=== PATIENT | female | born 1955 | race Caucasian/White ===

== ENCOUNTER 2025-04-19 10:27 | Outpatient (OUT) | payer MEDICARE, SELFPAY ==
--- OUTSIDE RECORDS SUMMARY | 2025-04-19 10:34 | XMS_ITS | Encounter Summary ---
Author Organization [facility] Address [address] [place] [address] Care Team Providers Care Instrumentation Tech Name Role Phone Sumit Ramires MD Primary Care Provider +[phone] Tyler Bailon DO Unavailable Encounter Details Date Type Department Care Team (Late st Contact Info) Description 04/14/2025 Bamboo flowsheet [facility] Family [facility] 112 [facility] 100 [place] [address] Sumit Ramires MD 112 [facility] 100 [place] [address] Social History Tobacco Use Types Packs/Day Years Used Date Smoking Tobacco: Never Smokeless Tobacco: Never Alcohol Use Standard Drinks/Week Comments Not Currently 0 (1 standard drink = 0.6 oz pure alcohol) Caffeine intake : 1-2 cups per day Social Connection and Isolat ion Panel [NHANES] Answer Date Recorded In a typical week, how many times do you talk on the phone with family, friends, or neighbors? Twice a week 11/18/2023 How often do you get togethe r with friends or relatives? Once a week 11/18/2023 How often do you attend chur ch or mu-ism services? More than 4 times per year 11/18/2023 Do you belong to any clubs o r organizations such as spiritism groups, unions, fraternal or athletic groups, or school groups? Yes 11/18/2023 How often do you attend meet ings of the clubs or organizations you belong to? 1 to 4 times per year 11/18/2023 Are you , , di vorced, , never , or living with a partner? 11/18/2023 AUDIT-C Answer Date Recorded Q1: How often do you have a drink containing alcohol? Never 11/18/2023 Q2: How many drinks containi ng alcohol do you have on a typical day when you are drinking? Patient does not drink Q3: How often do you have si x or more drinks on one occasion? Never 11/18/2023 Overall Financial Resource Strain (CARDIA) Answe r Date Recorded How hard is it for you to pa y for the very basics like food, housing, medical care, and heating? Not hard at all 11/18/2023 PHQ-2 Answer Date Recorded Patient Health Questionnaire-2 Score 0 12/30/2024 [facility] - Occupational Stress Questionnaire Answer Date Recorded Do you feel stress - tense, restless, nervous, or anxious, or unable to sleep at night because your mind is troubled all the time - these days? Not at all 11/18/2023 Exercise Vital Sign Answer Date Recorde d On average, how many days pe r week do you engage in moderate to strenuous exercise (like a brisk walk)? 2 days 11/18/2023 On average, how many minutes do you engage in exercise at this level? 30 min 11/18/2023 Hunger Vital Sign Answer Date Recorded Within the past 12 months, y ou worried that your food would run out before you got the money to buy more. Never true 11/18/19 24 Within the past 12 months, t he food you bought just didn't last and you didn't have money to get more. Never true 11/18/2023 PRAPARE - Transportation Answer Date Re corded In the past 12 months, has l ack of transportation kept you from medical appointments or from getting medications? No 10/31 In the past 12 months, has l ack of transportation kept you from meetings, work, or from getting things needed for daily living? No 11/18/2023 Housing Stability Vital Sign Answer Bandar e Recorded In the last 12 months, was t here a time when you were not able to pay the mortgage or rent on time? No 11/18/2023 Number of Places Lived in the Last Year Not on f ile 11/18/2023 In the last 12 months, was t here a time when you did not have a steady place to sleep or slept in a long term (including now)? No 11/18/2023 Education Answer Date Recorded What is the highest level of school you have completed or the highest degree you have received? Some college, no degree 05/27/2023 Comments No Sex and Gender Information Value Date Recorded Sex Assigned at Not on file Legal Sex Female 6:50 PM EDT Gender Identity Not on file Sexual Orientation Not on file Occupation Industry Job Start Date Job End Date Retired Not on file Not on file Not on file documented as of this encounter Plan of Treatment Upcoming Encounters Date Type Department Care Team (Late st Contact Info) Description 05/18/2025 10:30 AM EDT Office Visit [facility] [address] [address] [place] [address] Sumit Ramires MD [address] [place] [address] documented as of this encounter Visit Diagnoses Not on filedocumented in this encounter Additional Health Concerns Assessment Noted Time PHQ-9 Depression Total Score: 0 12/31/19 25 10:00 AM EDT documented as of this encounter Care Teams Instrumentation Tech Relationship Specialty Start Date End Date Sumit Ramires MD [address] [place] [address] PCP - General Family Medicine 01/08/23 Tyler Bailon DO [address] [place] [address] Referring Physician Orthopaedic Surgery 01/11/25 documented as of this encounter
--- OUTSIDE RECORDS SUMMARY | 2025-04-19 10:34 | XMS_ITS | Encounter Summary ---
Author Organization [facility] Address [address] [place] [address] Care Team Providers Care Casing Operator Name Role Phone Sumit Ramires MD Primary Care Provider + [phone] Tyler Bailon DO Unavailable [phone] Reason for Visit * Reason Comments Med Refill Encounter Details Date Type Department Care Team (Late st Contact Info) Description 11/14/2024 Refill [facility] Family Medicine [address] [place] [address] Sumit Ramires MD 112 [facility] [address] [place] [address] (Fax) Essential hypertension Social History Tobacco Use Types Packs/Day Years [...] often do you attend chur ch or mormon services? More than 4 times per year 11/18/2023 Do you belong to any clubs o r organizations such as mosque groups, unions, fraternal or athletic groups, or [...] Date Recorded Patient Health Questionnaire-2 Score 0 11/19/2023 [facility] - Occupational [...] place to sleep or slept in a assisted (including now)? No 11/18/2023 Education Answer Date [...] 05/18/2025 10:30 AM EDT Office Visit [facility] [address] [address] Sumit Ramires MD [address] [address] documented as of this encounter Visit Diagnoses Diagnosis Essential hypertension Unspecified essential hypertension documented in this encounter Care Teams Casing Operator Relationship Specialty Start Date End Date Sumit Ramires MD [address] [address] PCP - General Family Medicine 01/08/23 Tyler Bailon DO [address] [place] [address] Referring Physician Orthopaedic Surgery 01/11/25 documented as of this encounter
--- OUTSIDE RECORDS SUMMARY | 2025-04-19 10:34 | XMS_ITS | Clinical Summary ---
Author Organization [facility] Address [address] [place] [address] Care Team Providers Care Circulation Supervisor Name Role Phone Sumit Ramires MD Primary Care Provider + [phone] Tyler Bailon DO Unavailable [phone] Allergies Active Allergy Reactions Criticality Noted Date Comments Sulfamethoxazole-Trimethop rim Low 05/01/2023 Other Reaction(s): nausea and vomiting Medications vitamin k 100 MCG tablet Take 100 mcg by mouth 1 (one) time each day at the same time. Active cholecalciferol (Vitamin D-3) 250 MCG (37249 UT) tablet Take 10,000 Units by mouth in the morning. summer. Active cholecalciferol (Vitamin D-3) 50 MCG (2000 UT) tablet Take 6 tablets by mouth in the morning. [id number] total winter dose. Active calcium citrate (Calcitrate) 950 (200 Ca) MG tablet Take 475 mg by mouth in the morning and 475 mg in the evening and 475 mg before bedtime. Active Multiple Vitamins-Minerals (OCUVITE ADULT 50+ PO) Take 1 tablet by mouth Daily Active MULTI THERA Take 1 tablet by mouth Daily Active Misc Natural Products (OSTEO BI-FLEX JOINT SHIELD PO) Take 1 tablet by mouth Daily Active STRONTIUM CITRATE Take 1 tablet by mouth Daily Active losartan (Cozaar) 50 MG tabletIndications :Essential hypertension Take 1 tablet (50 mg) by mouth Daily 90 tablet 1 5 05/17/20 25 Active estradiol (Climara) 0.05 MG/24HRIndication s:Hormone replacement therapy Place 1 patch on the skin 1 (one) time per week 12 patch 3 5 11/19/19 26 Active Active Problems Problem Noted Date Diagnosed Date Cardiovascular event risk 01/11/2025 Hormone replacement therapy 11/10/2024 Age-related osteoporosis wit hout current pathological fracture 05/01/2023 Atrophic vaginitis 05/01/2023 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 05/01/2023 Essential hypertension 05/01/2023 Gastroesophageal reflux disease without esophagi tis 05/01/2023 History of hysterectomy 05/01/2023 Non morbid obesity due to excess calories 2022 Osteopenia of lumbar spine 05/01/2023 Osteopenia of right hip 05/01/2023 Osteoporosis of forearm 05/01/2023 Presence of left artificial hip joint 05/01/2023 Primary osteoarthritis of both knees 05/01/2023 Resolved Problems Problem Noted Date Diagnosed Date Resolved Date Gastroesophageal reflux dise ase with esophagitis 05/01/2023 11/19/2023 Encounters Date Type Department Care Team Description 04/14/2025 9:30 AM EDT Office Visit [facility] [address] [place] [phone] Sumit Ramires MD Gastroesophageal reflux disease without esophagitis (Primary Dx); Heart palpitations; Other chest pain; Essential hypertension ; Cardiovascular event risk; Non morbid obesity due to excess calories 04/14/2025 Bamboo flowsheet [facility] [address] [place] [address] Sumit Ramires MD 04/14/2025 Travel from Last 3 Months Immunizations Immunization Administration Dates Next Due Influenza, High Dose Seasona l, Preservative Free 06/16/2024,07/01/2019 Influenza, High-dose Seasona l, Quadrivalent, Preservative Free 06/12/2021 Influenza, Seasonal, Quadriv alent, Adjuvanted 06/17/2023,06/20/2022,06/07/2020 Influenza, injectable, quadr ivalent, preservative free 06/06/2022,06/04/2018 Moderna SARS-CoV-2 50mcg/0.5mL Booster 2 Pneumococcal Conjugate PCV 13 07/16/2019 Pneumococcal Polysaccharide PPSV23 07/17/2020 Family History Medical History Relation Name Comments No Known Problems Brother No Known Problems Daughter Angina Father Dad Heart disease Father Dad Alzheimer's disease Mother Kemi Cervical cancer Mother Kemi Diabetes Mother Kemi Heart disease Mother Kemi No Known Problems Sister No Known Problems Son Relation Name Status Comments Brother 1 brother Daughter Alive 1 daughter Father Dad Mother Kemi Other Alive spouse Sister 1 sister Son Alive 1 son Social History Tobacco Use Types Packs/Day Years Used Date Smoking Tobacco: Never Smokeless Tobacco: Never Tobacco Cessation:Counseling Given: Yes Alcohol Use Standard Drinks/Week Comments Not Currently [...] 11/18/2023 How often do you attend chur or evangelical services? More than 4 times per year 11/18/2023 Do you belong to any clubs o r organizations such as amish groups, unions, fraternal or athletic groups, or [...] Recorded Patient Health Questionnaire-2 Score 0 12/30/2024 [facility] - Occupational Stress [...] place to sleep or slept in a prison (including now)? No 11/18/2023 Education Answer Date [...] file Not on file Not on file Last Filed Vital Signs Vital Sign Reading Time Taken Comments Blood Pressure 120/72 04/14/2025 9:30 AM EDT Pulse 80 04/14/2025 9:30 AM EDT Temperature 36.8 C (98.3 F) 11/18/2023 10:38 AM EDT Respiratory Rate - - Oxygen Saturation 95% 04/14/2025 9:30 AM EDT Inhaled Oxygen Concentration - - Weight 70.8 kg (156 lb) 04/14/2025 9:30 AM EDT Height 152.4 cm (5') 04/14/2025 9:30 AM EDT Body Mass Index 30.47 04/14/2025 9:30 AM EDT Plan of Treatment Upcoming Encounters Date Type Department Care Team (Late st Contact Info) Description 05/18/2025 10:30 AM EDT Office Visit [facility] 112 [facility] 100 [place] [address] Sumit Ramires MD 112 [facility] 100 [place] [address] Health Maintenance Due Date Last Done Comments CT Colonography 1953 FIT-DNA 1953 FIT 1955 FOBT 1955 Sigmoidoscopy 1955 Mammogram 05/03/2024 05/03/2023, 04/03, 03/26/2019, Additional history exists Influenza Vaccine (#1) 2025 , 06/17/2023, 06/20/2022, Additional history exists Medicare Annual Wellness (AWV) 12/30/2025 12/30/2024 Colonoscopy 03/07/2028 03/07/2018 Colorectal Cancer Screening 03/07/2028 Pneumococcal Vaccine: 65+ Years Completed 0, 07/16/2019 Procedures Procedure Name Priority Date/Time Associated Diagnosis Comments *DIGITATION SCREEN MAMMOGRAM Routine 05/03/2023 8:08 AM EDT COLONOSCOPY Routine 03/07/2018 12:00 PM EDT Overweight Encounter for screening for osteoporosis Other specified anxiety disorders Other specified counseling Gastro-esophageal reflux disease without esophagitis Encounter for screening for malignant neoplasm of colon Encounter for general adult medical examination without abnormal findings Encounter for screening mammogram for malignant neoplasm of breast from Last 3 Months or Most Recently Relevant to Health Maintenance Results * *DIGITATION SCREEN MAMMOGRAM (05/03/2023 8:08 AM EDT) Anatomical Region Laterality Modality Radiographic Yenny ging us Sumit Ramires MD IMG XR PROCEDURES Final Resu lt * Colonoscopy (03/07/2018 12:00 PM EDT) Anatomical Region Laterality Modality Endoscopy 03/07/2018 12:0 0 PM EDT Narrative 03/07/2018 12:00 PM EDT PERFORMED AT [facility] LOCATION:[id number] Negative Procedure Note CONVERSION, GENERIC - 01/16/[address] [facility] LOCATION:[id number] Negative Liv Lester VENUE COORDINATOR ENDOSCOPY PROCEDURE ORD ERABLES Final Result from Last 3 Months or Most Recently Relevant to Health Maintenance Insurance [employer] Advance Directives Documents on File Type Date Recorded Patient Interior Systems Carpenter Expl anation Advance Directives and Living Will 07/02/2019 2019-06-29 Power Of Molten Iron Pourer Advance Directives and Living Will 07/02/2019 2019-06-29 Living Wi Care Teams Circulation Supervisor Relationship Specialty Start Date End Date Sumit Ramires MD 112 [facility] [address] [place] [address] PCP - General Family Medicine 01/08/23 Tyler Bailon DO [address] [place] [address] Referring Physician Orthopaedic Surgery 01/11/25
--- OUTSIDE RECORDS SUMMARY | 2025-04-19 10:34 | XMS_ITS | Encounter Summary ---
Author Organization [facility] Address [address] [place] [address] Care Team Providers Care Caustic Preparer Name Role Phone Sumit Ramires MD Primary Care Provider + [phone] Tyler Bailon DO Unavailable [phone] Encounter Details Date Type Department Care Team (Latest Contact Info) Description 04/14/2025 Travel Social History Tobacco Use Types Packs/Day Years [...] How often do you attend chur or spiritism services? More than 4 times per year 11/18/2023 Do you belong to any clubs o r organizations such as roman catholic groups, unions, fraternal or athletic groups, or [...] Recorded Patient Health Questionnaire-2 Score 0 12/30/2024 [facility] - Occupational [...] 10:30 AM EDT Office Visit [facility] [address] [address] Sumit Ramires MD [address] [address] documented as of this encounter Visit Diagnoses Not on filedocumented in this encounter Additional Health Concerns Assessment Noted Time PHQ-9 Depression Total Score: 0 12/31/19 10:00 AM EDT documented as of this encounter Care Teams Caustic Preparer Relationship Specialty Start Date End Date Sumit Ramires MD [address] [address] PCP - General Family Medicine 01/08/23 Tyler Bailon DO [address] [place] [address] Referring Physician Orthopaedic Surgery 01/11/25 documented as of this encounter
--- OUTSIDE RECORDS SUMMARY | 2025-04-19 10:35 | XMS_ITS | Encounter Summary ---
Author Organization [facility] Address [address] [place] [address] Care Team Providers Care Supervisor Production Managing Name Role Phone Sumit Ramires MD Primary Care Provider + [phone] Sumit Ramires MD Unavailable [phone] Tyler Bailon DO Unavailable [phone] Encounter Details Date Type Department Care Team (Late Contact Info) Description 05/29/2023 Orders Only [facility] Family Medicine [address] [place] [address] Sumit Ramires MD [address] [address] Social History Tobacco Use Types Packs/Day Years Used Date Smoking Tobacco: Never Smokeless Tobacco: Never Alcohol Use Standard Drinks/Week Comments Not Currently 0 (1 standard drink = 0.6 oz pure alcohol) Caffeine intake : 1-2 cups per day Education Answer Date Recorded What is the [...] Encounters Date Type Department Care Team (Late Contact Info) Description 05/18/2025 10:30 AM EDT Office Visit [facility] Family [facility] [address] [address] Sumit Ramires MD [address] [address] documented as of this encounter Procedures Procedure Name Priority Date/Time Associated Diagnosis Comments *DIGITATION SCREEN MAMMOGRAM Routine 05/03/2023 8:08 AM EDT documented in this encounter Results * *DIGITATION SCREEN MAMMOGRAM (05/03/2023 8:08 AM EDT) Anatomical Region Laterality Modality Radiographic Yenny ging Sumit Ramires MD IMG XR PROCEDURES Final Resu lt documented in this encounter Visit Diagnoses Not on filedocumented in this encounter Care Teams Supervisor Production Managing Relationship Specialty Start Date End Date Sumit Ramires MD [address] [address] PCP - General Family Medicine 01/08/23 Sumit Ramires MD [address] [address] PCP - Cecil Gregg 07/03/24 09/01/24 Tyler Bailon DO [address] [place] [address] Referring Physician Orthopaedic Surgery 01/11/25 documented as of this encounter
--- OUTSIDE RECORDS SUMMARY | 2025-04-19 10:35 | XMS_ITS | Encounter Summary ---
Author Organization [facility] Address [address] [place] [address] Care Team Providers Care Laser Beam Cutter Name Role Phone Sumit Ramires MD Primary Care Provider + [phone] Sumit Ramires MD Unavailable [phone] Tyler Bailon DO Unavailable [phone] Reason for Visit * Reason Comments Med Refill Encounter Details Date Type Department Care Team (Late st Contact Info) Description 05/23/2023 Refill [facility] Family Medicine [address] [place] [address] Sumit Ramires MD [address] [address] Essential (primary) hypertension Social History Tobacco Use Types Packs/Day Years Used Date Smoking Tobacco: Never Assessed Comments Unknown Sex and Gender Information Value Date Recorded Sex Assigned at Not on file Legal Sex Female 6:50 PM EDT Gender Identity Not on file Sexual Orientation Not on file documented as of this encounter Plan of Treatment Upcoming Encounters Date Type Department Care Team (Late st Contact Info) Description 05/18/2025 10:30 AM EDT Office Visit [facility] Family Medicine 112 [facility] 100 [place] [address] Sumit Ramires MD [address] [address] (Fax) documented as of this encounter Visit Diagnoses Diagnosis Essential (primary) hypertension Unspecified essential hypertension documented in this encounter Care Teams Laser Beam Cutter Relationship Specialty Start Date End Date Sumit Ramires MD [address] [place] [address] PCP - General Family Medicine 01/08/23 Sumit Ramires MD 112 [facility] 100 [place] [address] [facility] 09/01/24 Tyler Bailon DO [address] [place] [address] Referring Physician Orthopaedic Surgery 01/11/25 documented as of this encounter
--- OUTSIDE RECORDS SUMMARY | 2025-04-19 10:35 | XMS_ITS | Encounter Summary ---
Author Organization [facility] Address [address] [place] [address] Care Team Providers Care Adjunct Professor Of English Name Role Phone Sumit Ramires MD Primary Care Provider + [phone] Sumit Ramires MD Unavailable [phone] Tyler Bailon DO Unavailable [phone] Reason for Visit * Reason Comments Med Refill Encounter Details Date Type Department Care Team (Late st Contact Info) Description 05/10/2024 Refill [facility] [place] [facility] Family Medicine [address] [place] [address] Sumit Ramires MD [address] [facility] [address] [place] [address] (Fax) Essential hypertension Social History Tobacco Use [...] How often do you attend chur or muslim services? More than 4 times per year 11/18/2023 Do you belong to any clubs o r organizations such as druze groups, unions, fraternal or athletic groups, or [...] Recorded Patient Health Questionnaire-2 Score 0 11/19/2023 [facility] - Occupational Stress Questionnaire Answer Date Recorded [...] place to sleep or slept in a chcf (including now)? No 11/18/2023 Education Answer Date [...] Visit [facility] Family Medicine [address] [address] Sumit Ramires MD [address] [address] documented as of this encounter Visit Diagnoses Diagnosis Essential hypertension Unspecified essential hypertension documented in this encounter Care Teams Adjunct Professor Of English Relationship Specialty Start Date End Date Sumit Ramires MD [address] [address] PCP - General Family Medicine 01/08/23 Sumit Ramires MD [address] [address] PCP - Cecil Commercial 07/03/24 09/01/24 Tyler Bailon DO [address] [place] [address] Referring Physician Orthopaedic Surgery 01/11/25 documented as of this encounter
== END 2025-04-19 10:28 | disposition home or self-care (01) ==
PROVIDERS: PCP Family Medicine; Visit Provider Family Medicine
DX: R00.2 Palpitations (principal); R07.89 Other chest pain
CPT/HCPCS: 93242